=== PATIENT | female | born 2000 | race Caucasian/White ===

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

== ENCOUNTER 2021-01-06 15:56 | Emergency (ER) | payer OTHER ==
--- OUTSIDE RECORDS SUMMARY | 2021-01-06 15:59 | XMS REPORT | Continuity of Care Document ---
:2000 Author Organization [facility] t Address [address] [place] [address] Care Team Providers Name Role Phone Yelitza Samaniego Attending Clinician Problems This patient has no known problems. Allergies, Adverse Reactions, Alerts This patient has no known allergies or adverse reactions. Medications This patient has no known medications. Procedures This patient has no known procedures. Encounters Start End Encounter Admission Attending Care Care Encounter Source Date/Time Date/Time Type Type Clinicians Facility Department ID 2020-12-22 2020-12-22 Telephone DMITRI Peck [id number] 00:00:00 00:00:00 Rosana Torre ACCOUNTS PAYABLE LEAD [id number] [facility] [id number] MATERNAL [id number] & CHILD [address] [place] [address] Results This patient has no known results.
--- NOTE | 2021-01-06 17:59 | ER ---
Nurse's Notes [facility] Name: Reta Kent Age: 20 yrs Sex: Female : 2000 Arrival Date: 01/06/2021 Time: 16:12 Bed Waiting Private MD: Diagnosis: ED Course: 01/06 16:12 Patient arrived in ED. ds1 17:57 Arm band placed on. aa5 17:58 Micah Matos MD is Attending Physician. aa5 Administered Medications: No medications were administered Outcome: 17:58 Patient left the ED. aa5 Signatures: Taylor Rincon ds1 Heather Butts, RN RN aa5
== END 2021-01-06 17:58 | disposition left against medical advice (07) ==
LOC: ER 15:56
DX: Z02.9 Encounter for administrative examinations, unspecified (principal)

== ENCOUNTER 2021-10-06 18:26 | Emergency (ER) | payer OTHER ==
--- OUTSIDE RECORDS SUMMARY | 2021-10-06 18:29 | XMS REPORT | Continuity of Care Document ---
:2000 Author Organization [facility] t Address [address] [place] [address] Care Team Providers Name Role Phone TAO Primary Care Physician Unavailable Yelitza CYR Attending Clinician Unavailable Ger MELENDREZ C Attending Clinician Payers Payer Name Policy Type Policy Number Effective Date Expiration Date [facility] [id number] 2016 [facility] MEDICAID 00:00:00 Problems Condition Condition Condition Status Onset Resolution Last Treating Co mments Source Name Details Category Date Date Treatment Clinician Date Gonorrhea Gonorrhea Disease Active 2019-06 Uni vers -11 ity of 00:00: [address] Disease Active 2019-06 U nivers depression depression -11 it y of 00:00: [address] BMI BMI Disease Active 2019-06 Univers 37.0-37.9, 37.0-37.9, -11 it y of adult adult 00:00: [address] Anemia, Anemia, Disease Active 2019-06 Univers unspecifie unspecifie 11 it y of d type d type 00:00: [place] [facility] Vaginal Vaginal Disease Active 2019-06 Univers sore sore 11 ity of 00:00: [address] Tobacco Tobacco Disease Active 2019-06 Univers use use 11 ity of 00:00: [address] Encounter Encounter Disease Active 2015-06 Uni vers for for 1-04 ity of initial initial 00:00: [place] prescripti prescripti 00 Me dical on of on of Branch contracept contracept jose pills jose pills Elevated Elevated Disease Active 2015-06 Unive rs BP without BP without 1-04 [place] of diagnosis [place] hypertensi hypertensi Br anch on on Allergies, Adverse Reactions, Alerts Allergy Allergy Status Severity Reaction(s) Onset Inactive Treating Comm ents Source Name Type Date Date Clinician Amoxicil Propensi Active Nausea Univer s orion ty to and/or 6 ity of adverse Vomiting 00:00: [place] reaction 00 Medical s Branch AMOXICIL DRUG Active N/V Univers ORION INGREDI 6-14 ity of 00:00: [place] 00 [facility] Branch Social History Social Habit Start Date Stop Date Quantity Comments Source Exposure to Not sure [facility] SARS-CoV-2 (event) Medica l [place] Alcohol intake 2021-05-27 2021-05-27 0 /d [facility] 00:00:00 00:00:00 [facility] Tobacco use and 2021-05-27 2021-05-27 Never used [facility] exposure 00:00:00 00:00:00 [facility] Tobacco Comment 2020-04-15 2020-04-15 vapes [facility] 00:00:00 00:00:00 [facility] Sex Assigned At [birth year] [facility] 00:00:00 00:00:00 [facility] Smoking Status Start Date Stop Date Source Current every day smoker 2021-05-27 00:00:00 Uni versity [facility] Medications Ordered Filled Start Stop Current Ordering Indication Dosage Frequency Signature Comments Components Source Medication Medication Date Date Medication? Clinician (SIG) Name Name tinidazole 2020-06- No [id number] 2000mg Take 4 Univers 500 mg 2-27 12-29 tablets by ity of tablet 00:00: 05:59 mouth [place] 00 :00 daily with Medical breakfast Branch for 1 day. acyclovir 2020-06- No [id number] 400mg Take 1 Univers 400 mg 2- 12-29 tablet by ity of tablet 00:00: 05:59 mouth 3 [place] 00 :00 (three) Medical times Branch daily for 5 days. metroNIDAZO 2020-06- No [id number] 2000mg Take 4 Univers LE 500 mg 2-23 12-24 tablets by ity of tablet 00:00: 05:59 [place] now for 1 Medical dose. Branch metroNIDAZO Yes [id number] 500mg Take 1 Univers LE 500 mg 7-19 tablet by ity o f tablet 00:00: mouth 2 [place] 00 (two) Medical times Branch daily. ibuprofen 2019-06 Yes [id number] 800mg Take 1 Univers 800 mg 1-23 tablet by ity of tablet 00:00: mouth [place] 00 every 8 Medical (eight) Branch hours as needed for Pain (scale 4-6). norethindro 2019-06 Yes [id number] 1{tbl} Take 1 Univers ne 0.35 mg 1-10 tablet by ity of tablet 00:00: mouth [place] 00 daily. Medical Branch doxycycline 2019-06 Yes [id number] 100mg Take 1 Univers hyclate 100 1-08 capsule by it y of mg capsule 00:00[place] (two[place] Medical times [place] daily. DULoxetine Yes [id number] 30mg Take 1 U nivers (CYMBALTA) 5-29 capsule by ity of 30 mg 00:00: mouth [place] capsule 00 daily. [facility] Immunizations Ordered Filled Immunization Date Status Comments [facility] e Immunization Name Name Influenza Virus 2020-04-15 Completed Universit y of Vaccine Quad .5 mL 00:00:00 [facility] 6+ MO [place] Rho (d) Immune 2019-09-01 Completed University of Globulin 00:00:00 [facility] Rho (d) Immune 2019-07-28 Completed University of Globulin 00:00:00 [facility] Rho (d) Immune 2019-06-17 Completed University of Globulin 00:00:00 [facility] TDAP (ADACEL) 2019-06-14 Completed University of VACCINE 00:00:00 [facility] Influenza Virus 2019-03-01 Completed Universit y of Vaccine Quad .5 mL 00:00:00 [facility] IM 6+ MO [place] Rho (d) Immune 2019-01-18 Completed University of Globulin 00:00:00 [facility] Procedures This patient has no known procedures. Encounters Start End Encounter Admission Attending Care Care Encounter Source Date/Time Date/Time Type Type Clinicians Facility Department ID 2021-06-04 2021-06-04 Outpatient R GER [facility] [id number] Univers 10:30:00 10:30:00 SERA wang o f [facility] 2021-05-28 2021-05-28 Telephone Ger [facility] [id number] [facility] 00:00:00 00:00:00 Sera Torre FORM SETTER/DRIVER [id number] ity [facility] [id number] Justo as MATERNAL [id number] Med [facility] & CHILD [address] [place] [address] 2020-12-22 2020-12-22 Telephone Ger [facility] [id number] 00:00:00 00:00:00 Sera Torre FORM SETTER/DRIVER [id number] REGIONAL [id number] MATERNAL [id number] & CHILD [address] [place] [address] Results This patient has no known results.
[2021-10-06 20:09] LABS: Absolute Lymphocytes (CBC) 2.4 K/uL (0.7-4.9); Hematocrit 36.7 % (36.0-45.0); Lymphocytes % 15.2 % (15.3-44.8); MPV 7.9 fL (7.6-11.3); RBC Red Blood Cell Count 4.81 M/uL (3.86-4.86)
[2021-10-06 20:18] LABS: BUN Blood Urea Nitrogen 9 mg/dL (7-18); Bicarbonate 27 mmol/L (21-32); Glucose Level 93 mg/dL (74-106); Potassium 3.6 mmol/L (3.5-5.1); Sodium Level 137 mmol/L (136-145)
--- NOTE | 2021-10-06 20:53 | RAD REPORT ---
EXAM DESCRIPTION: CT - Soft Tissue Neck W/Contr - 10/06/2021 8:34 pm CLINICAL HISTORY: Soft tissue swelling, infection suspected, neck xray done COMPARISON: C Spine Wo Con dated 03/26/2018 TECHNIQUE: During dynamic enhancement using 100 milliliters nonionic IV contrast, axial 5 millimeter thick images of the neck were obtained. All CT scans are performed using dose optimization technique as appropriate and may include automated exposure control or mA/KV adjustment according to patient size. FINDINGS: Intracranial portion examination is unremarkable. No globe or orbital content abnormality. No acute paranasal sinus finding. Mastoid air cells and middle ears are clear. No acute bone finding . Adenoid tissues are increased in prominence over the 2018 study. Bilateral tonsil enlargement seen co mpared to 2018. No peritonsillar abscess. The parapharyngeal fat is normal in appearance. No tongue b ase or soft palate abnormality seen. Epiglottis is normal. No laryngeal abnormality seen. Patient has multiple bilateral cervical lymph nodes up to 2 cm in size. Largest of the lymph nodes sh ow a prominent enhancement pattern. No necrotic or abscessed lymph nodes present. Almost all of the l ymphadenopathy exist above the hyoid bone level. The parotid, submandibular and thyroid gland tissue show no suspicious findings. No prevertebral soft tissue thickening or retropharyngeal abscess. A pharyngeal discrete mass or wall thickening not seen. IMPRESSION: Tonsillitis pattern with enlarged bilateral tonsils compared to 2018. No tonsillar absce ss. Numerous enlarged enhancing bilateral cervical lymph nodes consistent with a reactive lymphadenopathy .
--- NOTE | 2021-10-06 21:29 | ER ---
Nurse's Notes [facility] Name: Reta Kent Age: 21 yrs Sex: Female : 2000 Arrival Date: 10/06/2021 Time: 18:28 Bed 12 Private MD: Diagnosis: Acute streptococcal tonsillitis, unspecified Presentation: 10/06 18:36 Chief complaint: Patient states: Cough, sore throat, N/V, and bilateral lymph node ll1 swelling since Tuesday. Subjective fever and chills. Coronavirus screen: Vaccine status: Patient reports being unvaccinated. Client denies travel out of the [place] in the last 14 days. chills, congestion, cough unrelated to allergies, fatigue, fever, headache, nausea, shaking with chills, sore throat, vomiting. Client presents with at least one sign or symptom that may indicate coronavirus-19. Standard/surgical mask placed on the client. Ebola Screen: Patient denies travel to an Ebola-affected area in the 21 days before illness onset. Acute neurological deficit: none identified. Initial Sepsis Screen: Does the patient meet any 2 criteria? HR > 90 bpm. No. Patient's initial sepsis screen is negative. Does the patient have a suspected source of infection? Yes: Other: sore throat. Risk Assessment: Do you want to hurt yourself or someone else? Patient reports no desire to harm self or others. Onset of symptoms was October 03, 2021. 18:36 Method Of Arrival: Ambulatory ll1 18:36 Acuity: WILIAN 3 ll1 Triage Assessment: 18:39 General: Appears ill, Behavior is cooperative, appropriate for age. Pain: Complains of ll1 pain in throat Quality of pain is described as aching, throbbing. EENT: Throat is reddened has enlarged tonsils bilaterally Reports pain when swallowing. Neuro: No deficits noted. Cardiovascular: No deficits noted. Respiratory: Reports cough that is. Historical: - Allergies: 18:38 Amoxicillin; ll1 - PMHx: 18:38 None; ll1 - PSHx: 18:38 section; ll1 - Immunization history:: Client reports having NOT received the Covid vaccine. - Social history:: Smoking status: Patient reports the use of cigarette tobacco products, smokes one-half pack cigarettes per day. Screenin:58 Abuse screen: Denies threats or abuse. Denies injuries from another. Nutritional ld1 screening: No deficits noted. Tuberculosis screening: No symptoms or risk factors identified. Fall Risk None identified. Assessment: 21:57 Reassessment: see triage assessment. Neuro: Duque Agitation-Sedation Scale (RASS): 0 ld1 - Alert and Calm. Vital Signs: 18:36 BP 149 / 87; Pulse 114; Resp 17; Temp 98.5; Pulse Ox 100% ; Weight 104.33 kg; Height 5 ll1 ft. 4 in. (162.56 cm); Pain 6/10; 21:58 BP 136 / 88; Pulse 101; Resp 18; Pulse Ox 100% on R/A; ld1 18:36 Body Mass Index 39.48 (104.33 kg, 162.56 cm) ll1 ED Course: 18:28 Patient arrived in ED. ja2 18:38 Triage completed. ll1 18:39 Arm band placed on. ll1 18:40 Mik Wong NP is PHCP. pm1 18:40 Toby Valdivia MD is Attending Physician. pm1 19:55 Strep Sent. ld1 19:55 CBC with Diff Sent. ld1 19:55 BMP Sent. ld1 19:55 Inserted saline lock: 20 gauge in right antecubital area, using aseptic technique. ld1 Blood collected. 20:32 PHCP role handed off by Mik Wong NP [facility] 20:32 Sujit Mcmillan PA is PHCP. [facility] 20:35 CT Soft Tissue Neck W/contr In Process Unspecified. EDMS 21:28 Cony Horn MD is Referral Physician. [facility] 21:57 Jesica Franklin, QUAN is Primary Nurse. ld1 21:58 Patient has correct armband on for positive identification. Placed in gown. Bed in low ld1 position. Call light in reach. Side rails up X2. Pulse ox on. NIBP on. Door closed. Noise minimized. 21:58 No provider procedures requiring assistance completed. IV discontinued, intact, ld1 bleeding controlled, No redness/swelling at site. Administered Medications: 22:03 Drug: Decadron - Dexamethasone 10 mg Route: IVP; Site: right antecubital; ld1 22:03 Drug: Ondansetron 4 mg Route: PO; ld1 Outcome: 21:28 Discharge ordered by . chirag 21:58 Discharged to home ambulatory. ld1 21:58 Condition: stable 21:58 Discharge instructions given to patient, Instructed on discharge instructions, follow up and referral plans. medication usage, Demonstrated understanding of instructions, follow-up care, medications. 22:07 Patient left the ED. ld1 Signatures: Dispatcher [employer] EDMS Sujit Mcmillan PA PA jmm Marinas, Patrick, NP CANDY DECORATOR pm1 Luz Marina Workman RN RN ll1 Jesica Franklin RN RN ld1 Bri Lomeli
--- NOTE | 2021-10-06 21:29 | EDPHYS ---
Physician Documentation [facility] Name: Reta Kent Age: 21 yrs Sex: Female : 2000 Arrival Date: 10/06/2021 Time: 18:28 Bed 12 Private MD: ED Physician Toby Valdivia HPI: 10/06 18:50 This 21 yrs old Female presents to ER via Ambulatory with complaints of Neck Swelling. pm1 18:50 The patient or guardian complains of swelling. Onset: The symptoms/episode pm1 began/occurred yesterday. Context: The neck injury/problem resulted from from unknown cause. Associated signs and symptoms: Pertinent positives: sore throat, Pertinent negatives: fever, Cough, vomiting. Severity of symptoms: in the emergency department the symptoms are actually worse. The patient has experienced similar episodes in the past, a few times, Denies episode of sore throat about 1 year ago. The patient has not recently seen a physician. 21-year-old patient presents to the ER with complaints of sore throat and neck swelling onset last night. Patient reports similar episodes in the past last episode about 1.5 years ago patient negative for fever, cough, vomiting. Negative for shortness of breath and difficulty with controlling secretions. Historical: - Allergies: 18:38 Amoxicillin; ll1 - PMHx: 18:38 None; ll1 - PSHx: 18:38 section; ll1 - Immunization history:: Client reports having NOT received the Covid vaccine. - Social history:: Smoking status: Patient reports the use of cigarette tobacco products, smokes one-half pack cigarettes per day. ROS: 18:50 Constitutional: Negative for fever, chills, and weight loss. pm1 18:50 Cardiovascular: Negative for chest pain, palpitations, and edema, Respiratory: Negative for shortness of breath, cough, wheezing, and pleuritic chest pain, Abdomen/GI: Negative for abdominal pain, nausea, vomiting, diarrhea, and constipation, MS/Extremity: Negative for injury and deformity, Skin: Negative for injury, rash, and discoloration, Neuro: Negative for headache, weakness, numbness, tingling, and seizure. 18:50 ENT: Positive for sore throat, Negative for drainage from ear(s), ear pain. 18:50 Neck: Positive for swelling, swollen nodes, of the Anterior aspect of neck. 18:50 All other systems are negative. Exam: 18:50 Constitutional: This is a well developed, well nourished patient who is awake, alert, pm1 and in no acute distress. Head/Face: Normocephalic, atraumatic. 18:50 Skin: Warm, dry with normal turgor. Normal color with no rashes, no lesions, and no evidence of cellulitis. MS/ Extremity: Pulses equal, no cyanosis. Neurovascular intact. Full, normal range of motion. 18:50 ENT: Posterior pharynx: Tonsils: bilaterally enlarged, with erythema, no exudate, no ulcerations, peritonsillar mass, is not appreciated, pooling of secretions, is not appreciated, Negative for trismus, Voice: no acute changes. 18:50 Neck: ROM/movement: is normal, Lymph nodes: lymphadenopathy is appreciated, anterior cervical nodes. 18:50 Cardiovascular: Exam negative for acute changes, Rate: normal, Rhythm: regular, Pulses: no pulse deficits are appreciated. 18:50 Respiratory: Exam negative for acute changes, respiratory distress, shortness of breath. 18:50 Neuro: Exam negative for acute changes, Orientation: is normal, Mentation: is normal, Motor: is normal, moves all fours. Vital Signs: 18:36 BP 149 / 87; Pulse 114; Resp 17; Temp 98.5; Pulse Ox 100% ; Weight 104.33 kg; Height 5 ll1 ft. 4 in. (162.56 cm); Pain 6/10; 21:58 BP 136 / 88; Pulse 101; Resp 18; Pulse Ox 100% on R/A; ld1 18:36 Body Mass Index 39.48 (104.33 kg, 162.56 cm) ll1 MDM: 19:04 Patient medically screened. pm1 21:28 Data reviewed: vital signs, nurses notes. Counseling: I had a detailed discussion with chirag the patient and/or guardian regarding: the historical points, exam findings, and any diagnostic results supporting the discharge/admit diagnosis, lab results, radiology results, the need for outpatient follow up, to return to the emergency department if symptoms worsen or persist or if there are any questions or concerns that arise at home. 10/06 18:48 Order name: Strep; Complete Time: 20:32 pm1 10/06 18:50 Order name: CBC with Diff; Complete Time: 20:32 pm1 10/06 18:50 Order name: CT Soft Tissue Neck W/contr; Complete Time: 21:00 pm1 10/06 18:50 Order name: BMP; Complete Time: 20:32 pm1 10/06 18:50 Order name: IV Saline Lock; Complete Time: 19:55 pm1 Administered Medications: 22:03 Drug: Decadron - Dexamethasone 10 mg Route: IVP; Site: right antecubital; ld1 22:03 Drug: Ondansetron 4 mg Route: PO; ld1 Disposition: 10/07 07:13 Co-signature as Attending Physician, Toby Valdivia MD. rn Disposition Summary: 10/06/21 21:28 Discharge Ordered Location: Home [facility] Condition: Stable [facility] Diagnosis - Acute streptococcal tonsillitis, unspecified [facility] Followup: [facility] - With: Cony Horn MD - When: 2 - 3 days - Reason: Recheck today's complaints, Continuance of care, Re-evaluation by your physician Discharge Instructions: - Strep Throat, Adult [facility] - Discharge Summary Sheet ll1 Forms: - Medication Reconciliation Form [facility] - Thank You Letter [facility] - Antibiotic Education [facility] - Work release form ll1 - Prescription Opioid Use [facility] Prescriptions: - Clindamycin HCl 300 mg Oral Capsule - take 1 capsule by ORAL route every 6 hours for 10 days; 40 capsule; Refills: 0, [facility] Product Selection Permitted Signatures: Dispatcher [employer] EDSujit Mccormick PA PA [facility] Toby Valdivia MD MD rn Marinas, Patrick, CLOSING MANAGER CLOSING MANAGER pm1 Luz Marina Workman RN RN ll1 Jesica Franklin RN RN ld1
[2021-10-06] MEDS ORDERED: dexAMETHasone 4 MG/ML VIAL ONE (22:04)
[2021-10-06] MEDS ORDERED: ONDANSETRON 4 MG (ODT) TAB ONE (22:09)
[2021-10-06 23:33] VITALS: TEMP 98.5; O2SAT 100
[2021-10-06 23:34] VITALS: BP 136/88
== END 2021-10-06 22:07 | disposition home or self-care (01) ==
LOC: ER 18:26
DX: J03.00 Acute streptococcal tonsillitis, unspecified (principal); F17.210 Nicotine dependence, cigarettes, uncomplicated
CPT/HCPCS: 85025; 80048; 36415; 87081; 70491; Q9967; J1100; 96374; 99284

== ENCOUNTER 2022-02-07 03:03 | Emergency (ER) | payer OTHER ==
--- OUTSIDE RECORDS SUMMARY | 2022-02-07 03:06 | XMS REPORT | Continuity of Care Document ---
:2000 Author Organization [facility] t Address [address] [place] [address] Care Team Providers Name Role Phone LUCY TAO Primary Care Physician Unavailable SREA CYR Attending Clinician Unavailable Sera Samaniego Attending Clinician [phone] Payers Payer Name Policy Type Policy Number Effective Date Expiration Date [facility] [id number] 2016 [facility] MEDICAID 00:00:00 Problems Condition Condition Condition Status Onset Resolution Last Treating Co mments Source Name Details Category Date Date Treatment Clinician Date Gonorrhea Gonorrhea Disease Active 2019-06 Uni vers 06-16 ity of 00:00: [address] Disease Active 2019-06 U nivers depression depression 11 it y of 00:00: [address] BMI BMI Disease Active 2019-06 Univers 37.0-37.9, 37.0-37.9, 11 it y of adult adult 00:00: [place] [facility] Anemia, Anemia, Disease Active 2019-06 Univers unspecifie unspecifie 11 it y of d type d type 00:00: [place] [facility] Vaginal Vaginal Disease Active 2019-06 Univers sore sore 11 ity of 00:00: [address] Tobacco Tobacco Disease Active 2019-06 Univers use use 06-16 ity of 00:00: [address] Encounter Encounter Disease Active 2015-06 Uni vers for for 1-04 ity of initial initial 00:00: [place] prescripti prescripti 00 Me dical on of on of Branch contracept contracept jose pills jose pills Elevated Elevated Disease Active 2015-06 Unive rs BP without BP without 1-04 [place] of diagnosis [place] hypertensi hypertensi Br anch on on Allergies, Adverse Reactions, Alerts Allergy Allergy Status Severity Reaction(s) Onset Inactive Treating Comm ents Source Name Type Date Date Clinician Amoxicil Propensi Active Nausea Univer s orion ty to and/or 11-17 ity of adverse Vomiting 00:00: [place] reaction 00 Medical s Branch AMOXICIL DRUG Active N/V Univers ORION INGREDI 6-14 ity of 00:00: [place] 00 [facility] Social History Social Habit Start Date Stop Date Quantity Comments Source Exposure to Not sure [facility] SARS-CoV-2 (event) Medica l [place] Alcohol intake 2021-05-27 2021-05-27 0 /d [facility] 00:00:00 00:00:00 [facility] Tobacco use and 2021-05-27 2021-05-27 Never used [facility] exposure 00:00:00 00:00:00 [facility] Tobacco Comment 2020-04-15 2020-04-15 vapes [facility] 00:00:00 00:00:00 [facility] Sex Assigned At 2000 2000 [facility] 00:00:00 00:00:00 [facility] Smoking Status Start Date Stop Date Source Current every day smoker 2021-05-27 00:00:00 Uni versity [facility] Medications Ordered Filled Start Stop Current Ordering Indication Dosage Frequency Signature Comments Components Source Medication Medication Date Date Medication? Clinician (SIG) Name Name tinidazole 2020-06- No [id number] 2000mg Take 4 Univers 500 mg 2-27 12-29 tablets by ity of tablet 00:00: 05:59 mouth [place] 00 :00 daily with Medical breakfast Branch for 1 day. acyclovir 2020-06- No [id number] 400mg Take 1 Univers 400 mg 2-23 12-29 tablet by ity of tablet 00:00: 05:59 mouth 3 [place] 00 :00 (three) Medical times Branch daily for 5 days. metroNIDAZO 2020-06- No [id number] 2000mg Take 4 Univers LE 500 mg 2-23 12-24 tablets by ity of tablet 00:00: 05:[place] now for 1 Medical dose. Branch metroNIDAZO Yes [id number] 500mg Take 1 Univers LE 500 mg 7-19 tablet by ity o f tablet 00:00: mouth 2 [place] 00 (two) Medical times Branch daily. ibuprofen 2019-06 Yes [id number] 800mg Take 1 Univers 800 mg 1-23 tablet by ity of tablet 00:00: mouth [place] 00 every 8 Medical (eight) Branch hours as needed for Pain (scale 4-6). norethindro 2019-06 Yes [id number] 1{tbl} Take 1 Univers ne 0.35 mg 1-10 tablet by ity of tablet 00:00: mouth [place] 00 daily. Medical Branch doxycycline 2019-06 Yes [id number] 100mg Take 1 Univers hyclate 100 1-08 capsule by it y of mg capsule 00:00[place] (two) Medical times [place] daily. DULoxetine Yes [id number] 30mg Take 1 U nivers (CYMBALTA) 5-29 capsule by ity of 30 mg 00:00: mouth [place] capsule 00 daily. [facility] Immunizations Ordered Filled Immunization Date Status Comments [facility] e Immunization Name Name Influenza Virus 2020-04-15 Completed Universit y of Vaccine Quad .5 mL 00:00:00 [facility] 6+ [place] Rho (d) Immune 2019-09-01 Completed University of Globulin 00:00:00 [facility] Rho (d) Immune 2019-07-28 Completed University of Globulin 00:00:00 [facility] Rho (d) Immune 2019-06-17 Completed University of Globulin 00:00:00 [facility] TDAP (ADACEL) 2019-06-14 Completed University of VACCINE 00:00:00 [facility] Influenza Virus 2019-03-01 Completed Universit y of Vaccine Quad .5 mL 00:00:00 [facility] 6+ [place] Rho (d) Immune 2019-01-18 Completed University of Globulin 00:00:00 [facility] Procedures This patient has no known procedures. Encounters Start End Encounter Admission Attending Care Care Encounter Source Date/Time Date/Time Type Type Clinicians Facility Department ID 2021-06-04 2021-06-04 Outpatient R AKINSIPE, [facility] [id number] [facility] 10:30:00 10:30:00 SERA howell [facility] 2021-05-28 2021-05-28 [facility]phone [facility] [id number] [facility] 00:00:00 00:00:00 Sera Torre PRE PLANNING ADVISOR [id number] ity [facility] [id number] Justo as MATERNAL [id number] Med ical & CHILD [address] [place] [address] 2020-12-22 2020-12-22 [facility]phone [facility] [id number] 00:00:00 00:00:00 Sera Torre PRE PLANNING ADVISOR [id number] [facility] [id number] MATERNAL [id number] & CHILD [address] [place] [address] Results This patient has no known results.
[2022-02-07] MEDS ORDERED: NA CHLORIDE 0.9% 1,000 ML ONE (03:27)
[2022-02-07] MEDS ORDERED: ONDANSETRON 4 MG/2 ML VIAL ONE (03:28)
[2022-02-07 03:46] LABS: Absolute Lymphocytes (CBC) 0.7 K/uL (0.7-4.9); Hematocrit 36.1 % (36.0-45.0); MCV 77.2 fL (80-100); RBC Red Blood Cell Count 4.67 M/uL (3.86-4.86)
[2022-02-07] MEDS ORDERED: ACETAMINOPHEN 500 MG TAB ONE (04:02)
[2022-02-07 04:06] LABS: Albumin 3.6 g/dL (3.4-5.0); Bilirubin Total 0.2 mg/dL (0.2-1.0); Potassium 3.7 mmol/L (3.5-5.1); Protein, Total 8.1 g/dL (6.4-8.2)
[2022-02-07 04:24] LABS: SARS-CoV-2 Antigen Rapid Res Negative (Negative)
--- NOTE | 2022-02-07 04:54 | ER ---
Nurse's Notes [facility] Name: Reta Kent Age: 21 yrs Sex: Female : 2000 Arrival Date: 02/07/2022 Time: 03:05 Bed 4 Private MD: Diagnosis: Vomiting;Acute tonsillitis, unspecified;Fever, unspecified Presentation: 02/07 03:13 Chief complaint: Patient states: vomiting began approx 3 hours LOBSTER MAN reports sore throat kl headache and chills. Coronavirus screen: Vaccine status: Patient reports being unvaccinated. Ebola Screen: Patient negative for fever greater than or equal to 101.5 degrees Fahrenheit, and additional compatible Ebola Virus Disease symptoms. Initial Sepsis Screen: Does the patient meet any 2 criteria? No. Patient's initial sepsis screen is negative. Does the patient have a suspected source of infection? No. Patient's initial sepsis screen is negative. Risk Assessment: Do you want to hurt yourself or someone else? Patient reports no desire to harm self or others. Onset of symptoms was February 07, 2022 at 00:01. 03:13 Method Of Arrival: Ambulatory kl 03:13 Acuity: WILIAN 3 kl Triage Assessment: 03:15 General: Appears in no apparent distress. comfortable, Behavior is calm, cooperative. kl Pain: Denies pain. GI: Reports intolerance of fluids, intolerance of food. Historical: - Allergies: 03:15 Amoxicillin; kl - Home Meds: 03:15 None [Active]; kl - PMHx: 03:15 None; kl - PSHx: 03:15 section; Appendectomy; kl - Immunization history:: Adult Immunizations not up to date. - Social history:: Smoking status: Patient denies any tobacco usage or history of. Screenin:26 Abuse screen: Denies threats or abuse. Denies injuries from another. Nutritional tw5 screening: No deficits noted. Tuberculosis screening: No symptoms or risk factors identified. Fall Risk None identified. Vital Signs: 03:13 BP 121 / 83; Resp 18; Temp 102.1(O); Weight 108.86 kg; Height 5 ft. 4 in. (162.56 cm); kl Pain 0/10; 05:27 Temp 98.6(O); tw5 03:13 Body Mass Index 41.20 (108.86 kg, 162.56 cm) ED Course: 03:05 Patient arrived in ED. [facility] 03:10 Micah Matos MD is Attending Physician. mar 03:15 Triage completed. 03:15 Sandra Reardon, RN is Primary Nurse. ke1 03:48 Inserted saline lock: 22 gauge in right forearm, using aseptic technique. ke1 03:59 Strep Sent. ke1 03:59 Influenza Screen (a \T\ B) Sent. ke1 03:59 SARS RAPID Sent. ke1 05:26 No provider procedures requiring assistance completed. IV discontinued, intact, tw5 bleeding controlled, No redness/swelling at site. Pressure dressing applied. 05:26 Patient has correct armband on for positive identification. tw5 05:27 Arm band placed on. tw5 Administered Medications: 03:48 Drug: NS 0.9% 1000 ml Route: IV; Rate: 1 bolus; Site: right forearm; ke1 03:48 Drug: Zofran (Ondansetron) 4 mg Route: IVP; Site: right forearm; ke1 03:59 Drug: Tylenol 1000 mg Route: PO; ke1 04:51 Drug: Zithromax (azithromycin) 500 mg Route: PO; ke1 Outcome: 04:53 Discharge ordered by . [facility] 05:27 Discharged to home ambulatory. tw5 05:27 Condition: good 05:27 Condition: improved 05:27 Discharge instructions given to patient, Instructed on discharge instructions, follow up and referral plans. Demonstrated understanding of instructions, follow-up care, medications, Prescriptions given X 3. 05:27 Patient left the ED. tw5 Signatures: Autumn Workman RN RN kl Anderson, Corey, MD MD cha [place], Brittany [facility] Apryl Adorno tw5 Sandra Reardon, QUAN GLASS ke1
--- NOTE | 2022-02-07 04:54 | EDPHYS ---
Physician Documentation [facility] Name: Reta Kent Age: 21 yrs Sex: Female : 2000 Arrival Date: 02/07/2022 Time: 03:05 Bed 4 Private MD: ED Physician Micah Matos HPI: 02/07 04:32 This 21 yrs old Female presents to ER via Ambulatory with complaints of mar Vomiting. 04:32 The patient presents to the emergency department with nausea, vomiting, that is mar intermittent. Onset: The symptoms/episode began/occurred 2 day(s) ago. Possible causes: unknown. The symptoms are aggravated by nothing. The symptoms are alleviated by nothing. Associated signs and symptoms: Pertinent positives: nausea, vomiting. Severity of symptoms: At their worst the symptoms were mild in the emergency department the symptoms are unchanged. The patient has not experienced similar symptoms in the past. Historical: - Allergies: 03:15 Amoxicillin; kl - Home Meds: 03:15 None [Active]; kl - PMHx: 03:15 None; kl - PSHx: 03:15 section; Appendectomy; kl - Immunization history:: Adult Immunizations not up to date. - Social history:: Smoking status: Patient denies any tobacco usage or history of. ROS: 04:35 Eyes: Negative for injury, pain, redness, and discharge, Neck: Negative for injury, mar pain, and swelling, Cardiovascular: Negative for chest pain, palpitations, and edema, Respiratory: Negative for shortness of breath, cough, wheezing, and pleuritic chest pain, Abdomen/GI: Negative for abdominal pain, nausea, vomiting, diarrhea, and constipation, Back: Negative for injury and pain, : Negative for injury, bleeding, discharge, and swelling, MS/Extremity: Negative for injury and deformity, Skin: Negative for injury, rash, and discoloration, Neuro: Negative for headache, weakness, numbness, tingling, and seizure, Psych: Negative for depression, anxiety, suicide ideation, homicidal ideation, and hallucinations, Allergy/Immunology: Negative for hives, rash, and allergies, Endocrine: Negative for neck swelling, polydipsia, polyuria, polyphagia, and marked weight changes, Hematologic/Lymphatic: Negative for swollen nodes, abnormal bleeding, and unusual bruising. 04:35 Constitutional: Positive for chills, fatigue, fever, malaise. 04:35 ENT: Positive for sinus congestion, sore throat. Exam: 04:35 Constitutional: This is a well developed, well nourished patient who is awake, alert, mar and in no acute distress. Head/Face: Normocephalic, atraumatic. Eyes: Pupils equal round and reactive to light, extra-ocular motions intact. Lids and lashes normal. Conjunctiva and sclera are non-icteric and not injected. Cornea within normal limits. Periorbital areas with no swelling, redness, or edema. ENT: Nares patent. No nasal discharge, no septal abnormalities noted. Tympanic membranes are normal and external auditory canals are clear. Oropharynx with no redness, swelling, or masses, exudates, or evidence of obstruction, uvula midline. Mucous membranes moist. Neck: Trachea midline, no thyromegaly or masses palpated, and no cervical lymphadenopathy. Supple, full range of motion without nuchal rigidity, or vertebral point tenderness. No Meningismus. Chest/axilla: Normal chest wall appearance and motion. Nontender with no deformity. No lesions are appreciated. Cardiovascular: Regular rate and rhythm with a normal S1 and S2. No gallops, murmurs, or rubs. Normal PMI, no JVD. No pulse deficits. Respiratory: Lungs have equal breath sounds bilaterally, clear to auscultation and percussion. No rales, rhonchi or wheezes noted. No increased work of breathing, no retractions or nasal flaring. Abdomen/GI: Soft, non-tender, with normal bowel sounds. No distension or tympany. No guarding or rebound. No evidence of tenderness throughout. Back: No spinal tenderness. No costovertebral tenderness. Full range of motion. Female : Normal external genitalia. Skin: Warm, dry with normal turgor. Normal color with no rashes, no lesions, and no evidence of cellulitis. MS/ Extremity: Pulses equal, no cyanosis. Neurovascular intact. Full, normal range of motion. Neuro: Awake and alert, GCS 15, oriented to person, place, time, and situation. Cranial nerves II-XII grossly intact. Motor strength 5/5 in all extremities. Sensory grossly intact. Cerebellar exam normal. Normal gait. 04:35 ENT: Posterior pharynx: Tonsils: enlarged on the right, enlarged on the left, bilaterally enlarged, with erythema, Uvula: normal, midline, swelling, that is mild. 04:35 Neck: External neck: is normal, no acute changes. Vital Signs: 03:13 BP 121 / 83; Resp 18; Temp 102.1(O); Weight 108.86 kg; Height 5 ft. 4 in. (162.56 cm); kl Pain 0/10; 05:27 Temp 98.6(O); tw5 03:13 Body Mass Index 41.20 (108.86 kg, 162.56 cm) kl MDM: 03:10 Patient medically screened. [facility] 02/07 03:10 Order name: CBC with Diff [facility] 02/07 03:10 Order name: CMP; Complete Time: 04:28 [facility] 02/07 03:10 Order name: Lipase; Complete Time: 04:28 [facility] 02/07 03:34 Order name: SARS RAPID; Complete Time: 04:28 [facility] 02/07 03:34 Order name: Influenza Screen (a \T\ B); Complete Time: 04:28 [facility] 02/07 03:34 Order name: Strep; Complete Time: 04:28 [facility] 02/07 03:10 Order name: IV Saline Lock; Complete Time: 03:49 [facility] 02/07 03:10 Order name: Labs collected and sent; Complete Time: 03:49 [facility] 02/07 03:10 Order name: Urine Dipstick-Ancillary (obtain specimen); Complete Time: 04:47 [facility] 02/07 04:25 Order name: Throat Culture [facility] 02/07 03:10 Order name: Urine Test (obtain specimen); Complete Time: 04:47 [facility] Administered Medications: 03:48 Drug: NS 0.9% 1000 ml Route: IV; Rate: 1 bolus; Site: right forearm; ke1 03:48 Drug: Zofran (Ondansetron) 4 mg Route: IVP; Site: right forearm; ke1 03:59 Drug: Tylenol 1000 mg Route: PO; ke1 04:51 Drug: Zithromax (azithromycin) 500 mg Route: PO; ke1 Disposition Summary: 02/07/22 04:53 Discharge Ordered Location: Home mar Problem: new mar Symptoms: have improved mar Condition: Stable mar Diagnosis - Vomiting mar - Acute tonsillitis, unspecified mar - Fever, unspecified mar Followup: mar - With: Private Physician - When: 2 - 3 days - Reason: Recheck today's complaints, Continuance of care, Re-evaluation by your physician Discharge Instructions: - Form - Return To Work kl - Discharge Summary Sheet [facility] - Fever, Adult [facility] - Tonsillitis [facility] - Upper Respiratory Infection, Adult [facility] - Tonsillitis, [id number] - Vomiting, Adult [facility] Forms: - Medication Reconciliation Form [facility] - Thank You Letter [facility] - Antibiotic Education [facility] - Work release form - Prescription Opioid Use [facility] Prescriptions: - Zofran 4 mg Oral Tablet - take 1 tablet by ORAL route every 12 hours As needed; 20 tablet; Refills: 0, [facility] Product Selection Permitted - Zithromax 500 mg Oral Tablet - take 1 tablet by ORAL route once daily for 3 days; 3 tablet; Refills: 0, [facility] Product Selection Permitted - Pepcid 20 mg Oral Tablet - take 1 tablet by ORAL route every 12 hours for 21 days; 42 tablet; Refills: 0, [facility] Product Selection Permitted Signatures: Dispatcher [employer] Autumn Crowder RN RN kl Anderson, Corey, MD MD cha Ebrottie, Kouassi RN RN ke1
[2022-02-07] MEDS ORDERED: AZITHROMYCIN 250 MG TAB ONE (04:59)
[2022-02-07 05:35] VITALS: BP 121/83
[2022-02-07 05:37] VITALS: TEMP 98.6
== END 2022-02-07 05:27 | disposition home or self-care (01) ==
LOC: ER 03:03
DX: J03.90 Acute tonsillitis, unspecified (principal); R50.9 Fever, unspecified; Z20.822 Contact with and (suspected) exposure to COVID-19; Z88.1 Allergy status to other antibiotic agents
CPT/HCPCS: 87070; 85025; 36415; 87081; 83690; 80053; 87804 ×2; 96374; 99284; 87811; J7030; J2405

== ENCOUNTER 2022-03-21 15:57 | Emergency (ER) | payer OTHER ==
--- OUTSIDE RECORDS SUMMARY | 2022-03-21 16:01 | XMS REPORT | Continuity of Care Document ---
:2000 Author Organization [facility] t Address [address] [place] [address] Care Team Providers Name Role Phone MARITZA TAO Primary Care Physician Unavailable ROSANA CYR Attending Clinician Unavailable Liv Rosana JACOBSON Attending Clinician [phone] Doctor Unassigned, [place] Attending Clinician Unavailable MAULIK SHEPPARD Attending Clinician Unavailable MARITZA TAO Attending Clinician Unavailable JOANN HARDEN Attending Clinician Unavailable BENTLEY ELKINS Attending Clinician Unavailable CELSO STARK Attending Clinician Unavailable Alfredito Anderson MD Attending Clinician Maritza Tao MD Attending Clinician Celso Stark MD Attending Clinician Joann Harden PA-C Attending Clinician ALFREDITO ANDERSON Attending Clinician Unavailable ALFREDITO ANDERSON Attending Clinician Unavailable Ultrasound, Adc Mfm Attending Clinician Unavailable Cari Palacios Attending Clinician Obey Shaw Attending Clinician Kelby Evangelista MD Attending Clinician Berny Marshall Attending Clinician MARITZA TAO Admitting Clinician Unavailable CELSO STARK Admitting Clinician Unavailable ALFREDITO ANDERSON Admitting Clinician Unavailable Alfredito Anderson MD Admitting Clinician Payers Payer Name Policy Type Policy Number Effective Date Expiration Date Leo obrien [facility] [id number] 2016 CHOICE MEDICAID 00:00:00 Problems Condition Condition Condition Status Onset Resolution Last Treating Co mments Source Name Details Category Date Date Treatment Clinician Date Gonorrhea Gonorrhea Disease Active 2019-06 Uni vers -11 ity of 00:00: [facility] [place] [facility] Disease Active 2019-06 U nivers depression depression 06-16 it y of 00:00: [facility] [place] BMI BMI Disease Active 2019-06 Univers 37.0-37.9, 37.0-37.9, 06-16 it y of adult adult 00:00: [facility] [place] Anemia, Anemia, Disease Active 2019-06 Univers unspecifie unspecifie 06-16 it y of d type d type 00:00: [facility] [place] Vaginal Vaginal Disease Active 2019-06 Univers sore sore 06-16 ity of 00:00: [place] [facility] Tobacco Tobacco Disease Active 2019-06 Univers use use 06-16 ity of 00:00: [address] Encounter Encounter Disease Active 2015-06 Uni vers for for 1-04 ity of initial initial 00:00: [place] prescripti prescripti 00 Me dical on of on of Branch contracept contracept jose pills jose pills Elevated Elevated Disease Active 2015-06 Unive rs BP without BP without 04 it y of diagnosis diagnosis 00:[place] hypertensi hypertensi Br anch on on Allergies, Adverse Reactions, Alerts Allergy Allergy Status Severity Reaction(s) Onset Inactive Treating Comm ents Source Name Type Date Date Clinician Amoxicil Propensi Active Nausea Univer s orion ty to and/or 6-14 ity of adverse Vomiting 00:00: [place] reaction 00 Medical s Branch AMOXICIL DRUG Active N/V Univers ORION INGREDI 6-14 ity of 00:00: [place] [id number] Medical Branch Social History Social Habit Start Date Stop Date Quantity Comments Source Exposure to Not sure [facility] SARS-CoV-2 (event) Medica l Branch Alcohol intake 2021-05-27 2021-05-27 0 /d [facility] 00:00:00 00:00:00 Medical Branch Tobacco use and 2021-05-27 2021-05-27 Never used [facility] exposure 00:00:00 00:00:00 Medical Branch Tobacco Comment 2020-04-15 2020-04-15 vapes [facility] 00:00:00 00:00:00 Medical Branch Sex Assigned At 2000 2000 [facility] 00:00:00 00:00:00 Medical Branch Smoking Status Start Date Stop Date Source Current every day smoker 2021-05-27 [facility] Ordered Filled Start Stop Current Ordering Indication Dosage Frequency Signature Comments Components Source Medication Medication Date Date Medication? Clinician (SIG) Name Name tinidazole 2020-06- No [id number] 2000mg Take 4 Univers 500 mg 2-27 12-29 tablets by ity of tablet 00:00: 05:59 mouth [place] 00 :00 daily with Medical breakfast Branch for 1 day. acyclovir 2020-06- No [id number] 400mg Take 1 Univers 400 mg 2-23 12-29 tablet by ity of tablet 00:00: 05:59 mouth 3 [place] 00 :00 (three) Medical times Branch daily for 5 days. metroNIDAZO 2020-06- No [id number] 2000mg Take 4 Univers LE 500 mg 2-23 12-24 tablets by ity of tablet 00:00: 05:59 [place] now for 1 Medical dose. Branch metroNIDAZO Yes [id number] 500mg Take 1 Univers LE 500 mg 7-19 tablet by ity o f tablet 00:00: mouth 2 [place] 00 (two) Medical times Branch daily. ibuprofen 2019-06 Yes [id number] 800mg Take 1 Univers 800 mg 1-23 tablet by ity of tablet 00:00: mouth [place] 00 every 8 Medical (eight) Branch hours as needed for Pain (scale 4-6). norethindro 2019-06 Yes [id number] 1{tbl} Take 1 Univers ne 0.35 mg 1-10 tablet by ity of tablet 00:00: mouth [place] 00 daily. Medical Branch doxycycline 2019-06 Yes [id number] 100mg Take 1 Univers hyclate 100 1-08 capsule by it y of mg capsule 00:00: [place] (two[place] Medical times Branch daily. DULoxetine Yes [id number] 30mg Take 1 U nivers (CYMBALTA) 5-29 capsule by ity of 30 mg 00:00: mouth [place] capsule 00 daily. [facility] Immunizations Ordered Filled Immunization Date Status Comments [facility] e Immunization Name Name Influenza Virus 2020-04-15 Completed Universit y of Vaccine Quad .5 mL 00:00:00 [facility] IM 6+ MO Branch Rho (d) Immune 2019-09-01 Completed University of Globulin 00:00:00 [facility] Rho (d) Immune 2019-07-28 Completed University of Globulin 00:00:00 [facility] Rho (d) Immune 2019-06-17 Completed University of Globulin 00:00:00 [facility] TDAP (ADACEL) 2019-06-14 Completed University of VACCINE 00:00:00 [facility] Influenza Virus 2019-03-01 Completed Universit y of Vaccine Quad .5 mL 00:00:00 [facility] IM 6+ MO Branch Rho (d) Immune 2019-01-18 Completed University of Globulin 00:00:00 [facility] Procedures This patient has no known procedures. Encounters Start End Encounter Admission Attending Care Care Encounter Source Date/Time Date/Time Type Type Clinicians Facility Department ID 2021-04-04 Emergency [facility] [id number] Univers 07:24:11 ity [facility] [place] [facility] 2021-04-04 Emergency [facility] [id number] Univers 03:56:33 ity [facility] [place] [facility] 2021-04-02 Outpatient P [facility] ZACHARIAH [id number] Univers 15:55:28 ity [facility] [place] [facility] 2021-04-02 Outpatient P [facility] ZACHARIAH [id number] Univers 11:34:19 ity [facility] [place] [facility] 2021-06-04 2021-06-04 Outpatient R AKINSIPE, [facility] [id number] Univers 10:30:00 10:30:00 ROSANA ity o f [facility] 2021-06-04 2021-06-04 Outpatient R AKINSIPE, [facility] [id number] Univers 10:30:00 10:30:00 ROSANA ity o f [facility] 2021-05-28 2021-05-28 [facility] 1.2.840.114 [id number] Univers 00:00:00 00:00:00 Rosana C BUS AIDE [id number] [facility] [id number] Justo as MATERNAL [phone] [facility] & [address] 2021-05-27 2021-05-27 Outpatient R LIV [facility] [id number] Univers 10:45:00 11:37:09 [address] o f [facility] 2021-05-27 2021-05-27 Office [facility] [id number] Univers 10:45:00 11:37:09 Visit Rosana Torre BUS AIDE [id number] [facility] [id number] Justo as MATERNAL [phone] [facility] & CHILD [address] [place] [address] 2021-05-27 2021-05-27 Orders Doctor DOMINGO 1.2.840.114 [id number] Univers 00:00:00 00:00:00 Only Unassigned, VALENTIN [id number] ity of [place] [id number] Justo as [phone] [address] 2021-05-21 2021-05-21 Outpatient Quynh SHEPPARD [facility] [id number] Univers 08:15:00 08:15:00 MAULIK wang [facility] [place] [facility] 2021-04-23 2021-04-23 Outpatient Quynh SHEPPARD [facility] [id number] Univers 09:45:00 09:45:00 MAULIK wang [facility] [place] [facility] 2020-12-22 2020-12-22 [facility]phone [facility] 1.2.840.114 [id number] 00:00:00 00:00:00 Rosana Torre BUS AIDE [id number] [facility] [id number] MATERNAL [phone] & [address] 2020-12-17 2020-12-17 Outpatient R LIV [facility] [id number] Univers 15:15:00 15:15:00 ROSANA [address]y o f [facility] 2020-07-15 2020-07-15 Outpatient R VALARIE, [facility] [id number] Univers 14:15:00 14:15:00 MAULIK wang [facility] [place] [facility] 2020-06-17 2020-06-17 Outpatient R VALARIE, [facility] [id number] Univers 14:45:00 14:45:00 MAULIK wang [facility] [place] [facility] 2020-05-16 2020-05-16 Outpatient R AKINSIPE, [facility] [id number] Univers 08:45:00 08:45:00 [address]ANA [address] o f [facility] 2020-04-15 2020-04-15 Outpatient R VALARIE, [facility] [id number] Univers 15:45:00 15:45:00 MAULIK wang [facility] [place] [facility] 2020-04-11 2020-04-11 Outpatient R VALARIE, [facility] [id number] Univers 08:00:00 08:00:00 MAULIK wang [facility] [place] [facility] 2019-11-30 2019-11-30 Outpatient R TAO, [facility] [id number] Univers 11:15:00 11:15:00 MARITZA wang [facility] [place] [facility] 2019-11-01 2019-11-01 Outpatient R TAO, [facility] [id number] Univers 16:00:00 16:00:00 MARITZA wang [facility] [place] [facility] 2019-10-11 2019-10-11 Outpatient R TAO, [facility] [id number] Univers 10:00:00 10:00:00 MARITZA wang [facility] [place] [facility] 2019-09-20 2019-09-20 Outpatient R TAO, [facility] [id number] Univers 09:30:00 09:30:00 MARITZA wang [facility] [place] [facility] 2019-09-17 2019-09-17 Outpatient R FINA, [facility] [id number] Univers 16:00:00 16:00:00 JOANN wang [facility] [place] [facility] 2019-09-07 2019-09-07 Outpatient R [facility] [id number] Univers 15:00:00 15:00:00 kathleen [facility] [place] [facility] 2019-08-23 2019-08-23 [facility] [id number] Univers 16:00:00 16:00:[address] [facility] 2019-08-16 2019-08-16 Out[facility] [id number] Univers 13:15:00 13:15:[address] [facility] 2019-08-10 2019-08-10 Outpatient P BRITTNI, [facility] [id number] Univers 11:30:00 11:30:[address] [facility] 2019-08-09 2019-08-09 Outpatient [facility] [id number] Univers 09:15:00 09:15:[address] [facility] 2019-08-07 2019-08-07 Outpatient R LINCOLN CELSO [facility] [id number] Univers 15:15:00 15:15:[address] [facility] 2019-08-06 2019-08-06 Outpatient P LINCOLN CELSO [facility] [place] [id number] Univers 15:08:18 17:45:[address] [facility] 2019-08-06 2019-08-06 Outpatient P [facility] [place] [id number] Univers 15:06:00 15:06:[address] [facility] 2019-08-06 2019-08-06 Outpatient P [facility] Z[place] [id number] Univers 15:06:00 15:06:[address] [facility] 2019-07-28 2019-07-28 [facility] 1.2.840.114 [id number] Univers 12:16:00 17:10:00 Encounter Alfredito Seymour [id number] ity of [place] [id number] [facility] [phone] [facility] 083 Branch 2019-07-28 2019-07-28 Orders Doctor DOMINGO 1.2.840.114 [id number] Univers 00:00:00 00:00:00 Only Unassigned, VALENTIN [id number] ity of [place] [facility] [id number] Justo [phone] [facility] 009 Branch 2019-07-26 2019-07-26 Routine [facility] 1.2.840.114 [id number] Univers 11:24:44 12:02:35 Maritza Seymour [id number] ity of [id number] [place] Profess[place] [phone] [address] 2019-07-19 2019-07-19 [facility] Celso St[facility] 1.2.840.114 [id number] Univers 17:39:34 18:50:00 Encounter Rachnaharsha Alfredito Lion 350.1.1 3.10 ity of [id number] [place] [phone] [address] 2019-07-19 2019-07-19 [facility] 1.2.840.114 [id number] Univers 00:00:00 00:00:00 Maritza Seymour [id number] i ty of [place] [id number] [place] [phone] [address] 2019-07-18 2019-07-18 Outpatient R FINA [facility] [id number] Univers 15:00:00 15:37:32 JOANN ity [facility] [place] [facility] 2019-07-18 2019-07-18 Routine [facility] [id number] Univers 14:51:36 15:37:32 Joann Bhaktaton [id number] ity of [place] [id number] [place] [phone] [address] 2019-07-17 2019-07-17 [facility] 1.2.840.114 [id number] Univers 00:00:00 00:00:00 Maritza Seymour [id number] i ty of [place] [id number] [phone] [address] 2019-07-17 2019-07-17 [facility] 1.2.840.114 [id number] Univers 00:00:00 00:00:00 Maritzatate BhaktaRandolph [id number] i ty of [place] [id number] [place] [phone] [address] 2019-07-12 2019-07-12 Routine Arnot, [facility] 1.2.840.114 [id number] Univers 13:36:34 20:18:07 Maritza Lion [id number] ity of [place] [id number] [phone] [address] 2019-07-01 2019-07-01 [facility] 1.2.840.114 [id number] Univers 12:08:24 13:05:00 Encounter Alfredito Lion [id number] ity of [place] [id number] [place] [phone] [facility] 083 [place] 2019-07-01 2019-07-01 Orders Doctor DOMINGO 1.2.840.114 [id number] Univers 00:00:00 00:00:00 Only Unassigned, VALENTIN [id number] ity of [place] [facility] 4.2.7.2.686 Justo as [phone] [facility] 009 [place] 2019-06-28 2019-06-29 Routine [facility] 1.2.840.114 [id number] Univers 08:45:32 20:59:03 Maritza Lion [id number] ity of Visit [place] [id number] [place] [phone] [address] 2019-06-20 2019-06-20 Telephone [facility] 1.2.840.114 [id number] Univers 00:00:00 00:00:00 Maritza Seymour [id number] i ty of [place] [id number] [place] [phone] [address] 2019-06-20 2019-06-20 Telephone [facility] 1.2.840.114 [id number] Univers 00:00:00 00:00:00 Maritza Seymour [id number] i ty of [place] [id number] [phone] [facility] 2019-06-20 2019-06-20 Orders Doctor DOMINGO 1.2.840.114 [id number] Univers 00:00:00 00:00:00 Only Unassigned, VALENTIN [id number] ity of [place] [facility] [id number] Justo as [phone] [facility] 009 [place] 2019-06-17 2019-06-17 Outpatient P RACHNAHarshaALFREDITO [facility] [place] [id number] Univers 13:14:00 17:55:00 LAFREDITO ANDERSON ittate [facility] [place] [facility] 2019-02-12 2019-02-12 Telephone [facility] 1.2.840.114 [id number] [facility] 00:00:00 00:00:00 Maritza Seymour [id number] i ty [place] [id number] [phone] [address] 2019-02-09 2019-02-09 [place] Technician Ultrasound, Adc [facility] 1.2 .840.114 [id number] Univers 09:35:37 10:05:37 Visit Cari Palacios 350.1 .13.10 ity of [place] [id number] [phone] [address] 2019-02-03 2019-02-03 Emergency [facility] 1.2.563.885 [id number] Univers 17:06:58 18:45:00 Obey Seymour 350.1.13.10 i ty of [place] [id number] [place] [phone] [facility] 084 [place] 2019-02-03 2019-02-03 Orders Doctor DOMINGO 1.2.840.114 [id number] Univers 00:00:00 00:00:00 Only Unassigned, VALENTIN [id number] ity of [place] [facility] 4.2.7.2.686 Justo as [phone] [facility] 009 [place] 2019-02-02 2019-02-02 Telephone [facility] 1.2.840.114 [id number] Univers 00:00:00 00:00:00 Joann Seymour 350.1.13.10 i ty [place] [id number] [phone] [address] 2019-02-01 2019-02-01 Telephone [facility] 1.2.840.114 [id number] Univers 00:00:00 00:00:00 Joann Seymour 350.1.13.10 i ty of [place] [id number] [phone] [address] 2019-01-31 2019-01-31 Routine [facility] [id number] [id number] Univers 09:20:53 10:04:56 Joann Seymour [id number] ity of [place] [id number] [phone] [address] 2019-01-29 2019-01-29 [place] [facility] 1.2.840.114 [id number] Univers 00:00:00 00:00:00 Maritza Seymour 350.1.13.10 i ty of [place] 4.2.7.2.[place] [phone] [address] 2019-01-23 2019-01-23 Telephone Tao, [facility] 1.2.840.114 [id number] Univers 00:00:00 00:00:00 Maritza Seymour 350.1.13.10 i ty of [place] [id number] [phone] [address] 2019-01-18 2019-01-18 Initial Tao, [facility] 1.2.840.114 [id number] Univers 10:09:10 11:50:01 Maritza Seymour 350.1.13.10 ity of [place] 4.2.7.2.[place] [phone] [address] 2019-01-15 2019-01-15 Emergency DMITRI Evangelista [id number] Univers 19:17:35 21:44:00 Kelby Seymour 350.1.13.10 ity of [place] 4.2.7.2.686 [place] [facility] [phone] [facility] 084 [place] 2019-01-03 2019-01-03 Initial Emiliano [facility] 1.2.840.114 [id number] Univers 08:31:50 09:39:33 Josephinendmichelle Beauchamp BUS AIDE [id number] [facility] [id number] Justo as MATERNAL [phone] Med ical & CHILD [address] [place] [address] 2019-01-03 2019-01-03 Orders Doctor DOMINGO 1.2.840.114 [id number] Univers 00:00:00 00:00:00 Only Unassigned, VALENTIN 350.1.13.10 ity of [place] [facility] [id number] Justo as [phone] [facility] 009 [place] 2019-01-01 2019-01-01 Telephone Emiliano [facility] 1.2.683.016 [id number] Univers 00:00:00 00:00:00 Berny Beauchamp BUS AIDE [id number] [facility] [id number] Justo as MATERNAL [phone] [facility] & CHILD [address] [place] [address] Results This patient has no known results.
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
[2022-03-21 16:24] VITALS: BP 140/74; TEMP 98.2; O2SAT 100
== END 2022-03-21 16:09 | disposition home or self-care (01) ==
LOC: ER 15:57
DX: T23.161A Burn of first degree of back of right hand, initial encounter (principal); T31.0 Burns involving less than 10% of body surface; Z88.1 Allergy status to other antibiotic agents
CPT/HCPCS: 99281